=== PATIENT | male | born 1935 ===

== ENCOUNTER 2018-03-19 06:43 | Outpatient (CLI) | payer OTHER | END 2018-03-19 06:50 | disposition home or self-care (01) | LOC: LAB 06:43 | DX: D50.0 Iron deficiency anemia secondary to blood loss (chronic) (principal); E11.69 Type 2 diabetes mellitus with other specified complication; E78.00 Pure hypercholesterolemia, unspecified; E03.8 Other specified hypothyroidism; N39.0 Urinary tract infection, site not specified; Z12.11 Encounter for screening for malignant neoplasm of colon; K62.5 Hemorrhage of anus and rectum; R10.9 Unspecified abdominal pain; E55.9 Vitamin D deficiency, unspecified; E51.8 Other manifestations of thiamine deficiency; E11.29 Type 2 diabetes mellitus with other diabetic kidney complication; N40.0 Benign prostatic hyperplasia without lower urinary tract symptoms ==